=== PATIENT | female | born 1990 | race Hispanic/Latino ===

== ENCOUNTER 2024-12-03 10:47 | Day surgery (SDC) | payer OTHER ==
[2024-12-03] VITALS (9 sets, daily range): BP systolic 111–131; BP diastolic 67–83; PULSE 65–90; RESP 15–16; TEMP 97.1–97.4
[~2024-12-03] VITALS: Ht 162.6 cm; Wt 79.8 kg
[2024-12-03] MEDS ORDERED: RABE-12 PO (12:37)
[2024-12-03] MEDS: 0.9%NACL 1000ML 1,000 ML IV ONE (12:52)
[2024-12-03] MEDS ORDERED: proPOFol 10 MG/ML 20ML VIAL IV ONE ×2 (13:27→13:34)
--- NOTE | 2024-12-03 14:56 | NUR ---
Full and complete discharge instructions given to Patient and Family both verbally and in writing. Explained GI procedure precautions and follow up. All questions answered. PIV removed with catheter tip intact. Home with Family W/C to POV.
== END 2024-12-03 14:55 | disposition home or self-care (01) ==
LOC: DAH 10:47 → ENDO 10:47
PROVIDERS: ATTEND Internal Medicine Gastroenterology
DX: K92.1 Melena (principal); K21.00 Gastro-esophageal reflux disease with esophagitis, without bleeding; K29.50 Unspecified chronic gastritis without bleeding; K52.9 Noninfective gastroenteritis and colitis, unspecified; K64.0 First degree hemorrhoids; K63.89 Other specified diseases of intestine; K59.00 Constipation, unspecified; K44.9 Diaphragmatic hernia without obstruction or gangrene; K29.00 Acute gastritis without bleeding; Z98.51 Tubal ligation status; Z79.899 Other long term (current) drug therapy
CPT/HCPCS: 45380; 43239; 00813; 81025; 88305; J7030; J2704 ×2; A4620; A4215 ×2; A4223; A4222; A4221; A4663; A4606; J3490